=== PATIENT | male | born 1940 | race Caucasian/White ===

== ENCOUNTER 2017-05-05 12:47 | Observation (INO) | payer OTHER ==
--- NOTE | ~2017-05-05 | EKG ---
PATIENT: NIKO PATTERSON UNIT #: [id number] Ventricular Rate: 50 BPM Atrial Rate: 50 BPM P-R Interval: 182 ms QRS Duration: 102 ms Q-T Interval: 482 ms QTC Calculation(Bezet): 439 ms P [place]: -7 degrees Calculated R [place]: 35 degrees Calculated T [place]: 61 degrees Diagnosis Line: Marked sinus bradycardia Diagnosis Line: Otherwise normal ECG Diagnosis Line: When compared with ECG of 06-MAY-2017 08:25, Diagnosis Line: (unconfirmed) Diagnosis Line: No significant change was found Diagnosis Line: Confirmed by GONZALEZ KISER MD ([id number]) on Diagnosis Line: 05/07/2017 4:00:03 PM INTERPRETING MD: NOE
--- NOTE | ~2017-05-05 | CR72 ---
[facility] A Service of [facility] RADIOLOGY TEXT RESULTS PATIENT: NIKO PATTERSON LOCATION: [place] [address] : 42 UNIT #: [id number] AGE: [address]: Da Hatfield MD SEX: M ORDER DR: [id number] [facility] [address] [facility]. [place], [place] [address] [id number] MR#: [id number] Acc #: [id number] NAME: NIKO PATTERSON. : 1940 SEX: M STUDY DATE/TIME: 05/05/2017 13:45 UNIT: [facility] ROOM: STUDY DESCRIPTION: CR Chest Single View Portable Attending Physician: Faizan Marcial M.D. Ordering Physician: Faizan Marcial M.D. Primary Care Physician: Cora Jasso M.D. MEDICAL IMAGING REPORT This report is preliminary unless electronic signature is present EXAM Portable chest HISTORY Chest pain today. COMPARISON 04/17/2015 FINDINGS Low volume inspiration with bibasilar atelectasis. Calcified pleural plaques bilaterally. Heart size normal. IMPRESSION No acute findings. Low volume inspiration with bibasilar atelectasis. Dictated by... Jose Luis Hilton M.D. THIS IS AN ELECTRONICALLY VERIFIED REPORT Jose Luis Hilton M.D. at 05/06/2017 7:03 AM DAQUAN/meek TD: 05/05/2017 14:59 JOB #: [id number] MEDICAL IMAGING REPORT Page 1 of 1 COPY
--- NOTE | ~2017-05-05 | CO ---
Unit #: [id number] #: [id number] Patient: NIKO BRADEN [id number] [facility]. [address] [place], [place] [address] [id number] I MR#: [id number] NAME: NIKO BRADEN. ROOM: 574 Age: 76 Sex: M Admission Date: 05/05/2017 : 1940 Attending Physician: Da Hatfield M.D. Primary Care Physician: Cora Jasso M.D. Requesting Physician: Da Hatfield M.D. Consultation Date: 05/06/2017 CONSULTATION REPORT REASON FOR CONSULTATION Medical management. HISTORY OF PRESENT ILLNESS Mr. Braden is a very pleasant 76-year-old gentleman, a patient of Dr. Cora Jasso, with the past medical history of coronary artery disease, diabetes, dyslipidemia and hypertension, who apparently started experiencing some substernal chest pain which is described as a pressure sensation for about 30 or 40 minutes while at work, accompanied with some lightheadedness and dizziness. Patient did not suffer with any syncopal episode. There were no alleviating or aggravating factors to his pain. Denies any fever, chills, cough, nausea, vomiting, diarrhea or headache so patient was admitted by cardiology service per Dr. Hatfield and apparently he underwent the cardiac cath with the stent placement per Dr. Hatfield. Our consult was obtained secondary to medical management. REVIEW OF SYSTEMS A 12-point review of systems on this patient is basically negative except as above. PAST MEDICAL HISTORY Past medical history is significant for a history of coronary artery disease, hypertension, dyslipidemia and diabetes. PAST SURGICAL HISTORY Past surgical history is significant for PCI with stent in the past, also multiple EGDs and C-scopes. MEDICATIONS Reviewed. ALLERGIES Penicillin. SOCIAL HISTORY No current history of tobacco, alcohol or illicit drug use. FAMILY HISTORY Significant for coronary artery disease. PHYSICAL EXAMINATION GENERAL: On the physical exam he is a 76-year-old gentleman not in acute distress. Unit #: [id number] #: [id number] Patient: NIKO BRADEN VITAL SIGNS: BP 130/59. Heart rate 61. Respirations 16. Temperature 97.5. HEENT: Head is atraumatic. Pupils equal, round and reactive to light and accommodation. Extraocular muscles intact. Oropharynx clear. NECK: Supple. No mass. No JVD. No bruits. CHEST: Clear to auscultation bilaterally. CARDIOVASCULAR EXAM: S1, S2. No murmurs. ABDOMEN: Soft, nontender, nondistended. EXTREMITIES: Lower extremities without any cyanosis, clubbing or edema. NEUROLOGIC: Patient grossly intact, without any focal deficits. DIAGNOSTIC STUDIES IMAGING: Chest x-ray on admission was unremarkable. LABORATORY: Chemistry today also unremarkable. Coagulation panel significant for PTT of 34.7. Initial cardiac enzymes were negative. Hematology significant for white count of 11,000 and hemoglobin and hematocrit 11.3 and 34.6. ASSESSMENT AND PLAN 1. Coronary artery disease, status post percutaneous coronary intervention with stent and now repeat cardiac cath with another stent per Dr. Hatfield: Continue medical management per Cardiology. Most likely will be discharged home tomorrow. Follow up on chemistry in the morning. 2. Hypertension, stable: Continue current meds. 3. Dyslipidemia: Continue statin. 4. Diabetes, on Levemir. 5. Questionable dementia, on Namenda. 6. Hypothyroidism: Continue Synthroid I would like to thank Dr. Hatfield for giving me the opportunity to get involved in this patient's care. We will follow along with you. Dictated by... Tung Loredo M.D. OC/marianne TD: 05/07/2017 22:06 JOB #: [id number] CONSULTATION REPORT Page 1 of 1 X Tung Loredo MD X CONSULTATION REPORT
--- NOTE | ~2017-05-05 | EKG ---
PATIENT: NIKO PATTERSON UNIT #: [id number] Ventricular Rate: 76 BPM Atrial Rate: 76 BPM P-R Interval: 162 ms QRS Duration: 90 ms Q-T Interval: 394 ms QTC Calculation(Bezet): 443 ms P [place]: -25 degrees Calculated R [place]: 23 degrees Calculated T [place]: 76 degrees Diagnosis Line: Normal sinus rhythm Diagnosis Line: Normal ECG Diagnosis Line: When compared with ECG of 05-MAY-2017 12:53, Diagnosis Line: (unconfirmed) Diagnosis Line: Sinus rhythm has replaced Electronic atrial Diagnosis Line: pacemaker Diagnosis Line: Confirmed by GONZALEZ KISER MD ([id number]) on Diagnosis Line: 05/07/2017 3:41:43 PM INTERPRETING MD: NOE
--- NOTE | ~2017-05-05 | HP ---
Unit #: [id number] #: [id number] Patient: NIKO BRADEN [id number] [address] [place], [place] [address] [id number] I MR#: [id number] NAME: NIKO BRADEN ROOM: 40615 Age: 76 Sex: M Admission Date: 05/05/2017 : 1940 Attending Physician: Da Hatfield M.D. Primary Care Physician: Cora Jasso M.D. HISTORY AND PHYSICAL REASON FOR ADMISSION Unstable angina pectoris. 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 In 2011, he was taken to [facility] [place] [facility] following a near syncopal episode and found to have significant stenosis in two coronary arteries, the details of which are not available. One of the arteries had a 90% stenosis and underwent insertion of a drug-eluting stent while a smaller artery with 85% stenosis was not intervened with. 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 This morning about 10 a.m. he was sitting at his desk at the office when he had sudden onset of pressure-like sensation in the mid anterior chest associated with burning sensation in the left parasternal area with radiation of the pain to the left shoulder and the left upper arm accompanied by dizziness and lightheadedness without any diaphoresis, palpitations, syncope, or near syncope. He did not take any sublingual nitroglycerin and the pain subsided in about 30-40 minutes but he decided to come to the emergency room. While in the emergency room, he had recurrence of this pain and was advised admission. Over the last five years, he had not had any angina pectoris at rest or on exertion. He has denied any orthopnea, nocturnal dyspnea, syncope, near syncope, diplopia, blurred vision, amaurosis fugax, transient ischemic attacks. PAST MEDICAL HISTORY A year ago he was thought to have had a small TIA related to small vessel disease. Again, the details are not available. The patient is known to have hypertension, diabetes mellitus, and hyperlipidemia. SOCIAL AND PERSONAL HISTORY He is a lifetime nonsmoker and used to drink small amounts of alcohol in his earlier days but stopped 10 years ago. FAMILY HISTORY His father underwent five-vessel bypass graft surgery in his early 70s and was a patient of mine. PAST SURGICAL HISTORY Unremarkable. Unit #: [id number] #: [id number] Patient: NIKO BRADEN. PHYSICAL EXAMINATION GENERAL: Reveals a middle-aged white male mildly obese in no acute distress. There is no jugular venous distention. Carotid upstrokes are normal without any bruits. Posterior tibialis pulses are bilaterally absent. Dorsalis pedis pulses are normal. CARDIAC: Shows apical impulse is palpable in the fifth intercostal space and midclavicular line and is normal, both heart sounds are normal. No rubs or clicks are audible. There is no murmur. CHEST: Shows normal to palpation, percussion, and auscultation. There is good air entry bilaterally without rales or rhonchi. ABDOMEN: Shows mild obesity. There is no hepatosplenomegaly, free fluid, or masses. RECTAL: Not done. CENTRAL NERVOUS SYSTEM: Within normal limits. DIAGNOSTIC STUDIES LABORATORY: Cardiac enzymes have been normal so far. CARDIOVASCULAR: Electrocardiogram at the time of admission shows normal sinus rhythm, old inferior wall TX, and T-wave abnormalities suggestive of bilateral wall subepicardial ischemia. DIAGNOSES 1. Unstable angina pectoris. 2. Status post percutaneous coronary intervention with stent insertion in 2011, details not known. 3. Insulin-dependent diabetes mellitus. 4. Hypertension. 5. Hyperlipidemia. 6. History of transient ischemic attack. PLAN 1. Repeat cardiac enzymes and electrocardiograms would be performed. 2. Lipid profile will be done in the morning. 3. Patient is being started on beta blockers and Ranexa in addition to long-acting nitrates, aspirin, and Plavix that he has been on. 4. He is advised to consider cardiac catheterization because of history of coronary artery disease and new onset of abdominal pain to which he agrees. Procedure and risks were discussed with the patient and his . Dr. Bejarano will be requested to see the patient in consultation and manage her diabetes mellitus and other medical problems. Dictated by Mya Sarkar TD: 05/05/2017 17:23 JOB #: [id number] Unit #: [id number] #: [id number] Patient: NIKO BRADEN CC: Cora Jasso M.D. HISTORY AND PHYSICAL Page 1 of 1 X Da Hatfield MD X HISTORY AND PHYSICAL
--- NOTE | ~2017-05-05 | EKG ---
PATIENT: NIKO PATTERSON UNIT #: [id number] Ventricular Rate: 54 BPM Atrial Rate: 54 BPM P-R Interval: 182 ms QRS Duration: 104 ms Q-T Interval: 472 ms QTC Calculation(Bezet): 447 ms P [place]: -16 degrees Calculated R [place]: 50 degrees Calculated T [place]: 68 degrees Diagnosis Line: Sinus bradycardia Diagnosis Line: Otherwise normal ECG Diagnosis Line: When compared with ECG of 05-MAY-2017 12:54, Diagnosis Line: (unconfirmed) Diagnosis Line: No significant change was found Diagnosis Line: Confirmed by GONZALEZ KISER MD ([id number]) on Diagnosis Line: 05/07/2017 3:57:36 PM INTERPRETING MD: NOE
--- NOTE | ~2017-05-05 | EKG ---
PATIENT: NIKO PATTERSON UNIT #: [id number] Ventricular Rate: 59 BPM Atrial Rate: 59 BPM P-R Interval: 184 ms QRS Duration: 104 ms Q-T Interval: 450 ms QTC Calculation(Bezet): 445 ms P [place]: -26 degrees Calculated R [place]: 69 degrees Calculated T [place]: 31 degrees Diagnosis Line: Sinus bradycardia with sinus arrhythmia Diagnosis Line: Otherwise normal ECG Diagnosis Line: When compared with ECG of 06-MAY-2017 10:51, Diagnosis Line: (unconfirmed) Diagnosis Line: No significant change was found Diagnosis Line: Confirmed by GONZALEZ KISER MD ([id number]) on Diagnosis Line: 05/07/2017 4:13:01 PM INTERPRETING MD: NOE
--- NOTE | ~2017-05-05 | DS ---
Unit #: [id number] #: [id number] Patient: NIKO PATTERSON [id number] [address] [address] [id number] MR#: [id number] NAME: NIKO PATTERSON. ROOM: 574 Age: 76 Sex: M Admission Date: 05/05/2017 : 1940 Discharge Date: 05/07/2017 Attending Physician: Da Hatfield M.D. Primary Care Physician: Cora Jasso M.D. DISCHARGE SUMMARY DISCHARGE DIAGNOSES 1. Unstable angina. 2. Status post cardiac catheterization 05/06/2017 at [facility] that reveals the following results: a) Left main short, calcified but no stenosis. b) Left anterior descending with mild to moderate calcifications throughout the course. Proximal left anterior descending 40% to 50% stenosis before the origin in the first diagonal branch. 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 c) Circumflex artery with 90% stenosis in the first obtuse marginal branch. Mid circumflex artery with 30% stenosis. PDA of circumflex artery shows presence of stent that is widely patent. Posterior marginal branch is normal. The previously placed stent in the distal circumflex artery is widely patent. d) Right coronary artery is small caliber, nondominant vessel with 50% to 60% stenosis in the mid segment. e) Ejection fraction of 55%. 3. Status post percutaneous coronary intervention with Synergy drug-eluting stent to the proximal first marginal branch. 4. 2D echocardiogram 05/06/2017 shows ejection fraction of 45% to 50% with mildly dilated left atrium and right ventricle. Mild mitral regurgitation, mild tricuspid regurgitation, mild to moderate valvular regurgitation. Right ventricular systolic pressure 32 mmHg. 5. Previous percutaneous coronary intervention and stent to the PDA of the circumflex artery and distal circumflex artery in 2011. 6. Hypertension. 7. Hyperlipidemia. 8. Diabetes mellitus type 2. 9. Chronic iron deficiency anemia. 10. Dementia. DISCHARGE MEDICATIONS 1. Pulmicort, one vial daily p.r.n. 2. Olmesartan 20 mg q. h.s. 3. Atorvastatin 80 mg q. h.s. 4. Zetia 10 mg daily. 5. Lopressor 12.5 mg b.i.d. 6. Namenda 5 mg b.i.d. 7. Janumet 100/1000 mg q. h.s. 8. Levemir 12 units subcu b.i.d. 9. Centrum Silver, one tablet daily. 10. PreserVision multivitamin, one tablet b.i.d. 11. Aspirin 81 mg daily. Unit #: [id number] #: [id number] Patient: NIKO PATTERSON 12. Plavix 75 mg daily. 13. Glipizide 10 mg daily. 14. Levothyroxine 150 mcg daily. 15. Isosorbide mononitrate 60 mg daily. 16. Nitroglycerin 0.4 mg sublingual q.5 minutes x3 p.r.n. chest pain. 17. Vitamin B12 6000 mcg daily. HOSPITAL COURSE This is a 76-year-old white male who had previously placed stents to his PDA of the circumflex artery and the distal circumflex artery following a syncopal episode. He developed rest angina with burning sensation that radiated into his left shoulder and arm associated with dizziness and lightheadedness. For this reason, he came to the emergency room for evaluation. He was ruled out for an acute myocardial infarction where troponin was negative. He was started on beta blockers, long acting nitrates, aspirin, Plavix and Ranexa. He was advised to undergo cardiac catheterization to re-evaluate his coronary anatomy. Risks and benefits were explained and the patient was agreeable. The following day, the patient went to the cardiac catheterization lab where he was found to have a 90% stenosis in the proximal third of the first marginal branch which was most likely the culprit lesion. There was a 70% to 75% stenosis in the mid LAD that was not dilated. There was successful deployment of a 3.5 x 20 mm long Synergy drug-eluting stent into the proximal third of the first marginal branch post dilated up to 3.51 mm. The 90% stenosis was reduced to no residual. There was NICOLE III flow in the distal vessel. Aggressive risk factor management controlled with diabetes and lipid levels will be done. Cardiac rehab was asked to see the patient post procedure. He was continued on dual antiplatelet therapy with aspirin and Plavix. He had no electrocardiogram changes post procedure. Echocardiogram was done which found him to have left ventricular systolic function but no significant valvular heart disease. Dr. Byers saw the patient for diabetes management. Today, the patient is doing well. He is ambulating in his room and tolerating his exercise. He had no recurrent chest pain. There were no arrhythmias. He will need dual antiplatelet therapy for one year. It was discussed with the patient not to discontinue his antiplatelet therapy to prevent stent thrombosis, CVA, [place] or . He is stable for discharge today. ASSESSMENT VITAL SIGNS: Blood pressure 109/52, heart rate 55, temperature 97.4. CHEST: Clear to auscultation. HEART: S1, S with regular rate and rhythm. ABDOMEN: Soft, nontender with bowel sounds present. EXTREMITIES: Without leg edema. Right radial without hematoma or bruising. DIAGNOSTIC STUDIES LABORATORY: Hemoglobin 10.6, hematocrit 31.3, platelet count 232, white count 10.4, sodium 136, potassium 4.3, BUN 19, creatinine 1.3, glucose 105. MB index 9.8, CK total 63, cholesterol 84, triglycerides 242, LDL 11, HDL 25. CARDIOVASCULAR: Electrocardiogram - sinus bradycardia, rate of 50 beats/minute. DISCHARGE INSTRUCTIONS Unit #: [id number] #: [id number] Patient: NIKO PATTERSON 1. The patient will be discharged home today. 2. Follow up with his primary care physician in two weeks. 3. Follow up with Dr. Hatfield on , June 24, at 2:45 p.m. 4. No driving for 24 hours. No heavy lifting for 48 hours. 5. Cardiac Rehab has been consulted to see the patient prior to discharge. 6. All information has been explained to the given the patient's dementia. 7. Dual antiplatelet therapy for one year. 8. Continue risk factor modification to control her blood pressure and lipid levels. Dictated by... Kim LopezRBonifacio for Mya Hoover/sherman TD: 05/10/2017 10:38 JOB #: [id number] DISCHARGE SUMMARY Page 1 of 1 X Anirudh Booth APRN DISCHARGE SUMMARY
[~2017-05-05 12:47] MED LIST: ACTOS30 MG PO; ADVAIR 5001 DISK W/D INH; ALBUTEROL17 GM INH; ARICEPT PO; ASPIRIN81 M1 PO; ATROVENT NASAL15 ML; BENICAR PO; BENZONATATE PO; CENTRUM PO; CYMBALTA30 MG PO; DDAVP0.2 M1 PO; DETROL PO; FENOFIBRATE160 MG PO; FISH OIL 1,0001 CA2 PO; GLIPIZIDE5 MG/BOTTL PO; HYTRIN2 MG PO; IMDUR-ER60 MG PO; LEVOXYL175 MCG PO; METFORMIN HCL500 M1 PO; NAMENDA5 MG PO; NEXIUM40 MG/PACK PO; OCUTABS TABLET1 TAB PO; PLAVIX PO; SINGULAIR PO; UROXATRAL10 MG PO; VYTORIN 10-40 M1 TAB PO; ZYRTEC D PO
[2017-05-05] MEDS ORDERED: ZETIA PO (13:21)
[2017-05-05] MEDS ORDERED: BUDESONIDE0.5 MG/2 M NEB (13:21)
[2017-05-05] MEDS ORDERED: GLIPIZIDE10 MG PO (13:22)
[2017-05-05] MEDS ORDERED: ISOSORBIDE MONO60 M1 PO (13:22)
[2017-05-05] MEDS ORDERED: SYNTHROID PO (13:22)
[2017-05-05] MEDS ORDERED: CLOPIDOGREL75 MG PO (13:22)
[2017-05-05] MEDS ORDERED: NAMENDA5 MG PO (13:23)
[2017-05-05] MEDS ORDERED: VITAMIN B122500 MC1 PO (13:23)
[2017-05-05] MEDS ORDERED: FISH OIL300 MG PO (13:24)
[2017-05-05] MEDS ORDERED: PRESERVISION1 EA PO (13:24)
[2017-05-05] MEDS ORDERED: OLMESARTAN MEDO20 MG PO (13:25)
[2017-05-05] MEDS ORDERED: JANUMET XR 1001 EACH PO (13:26)
[2017-05-05] MEDS ORDERED: LIPITOR PO (13:26)
[2017-05-05] MEDS ORDERED: CENTRUM PO (13:27)
[2017-05-05] MEDS ORDERED: ASPIRIN81 M2 PO (13:27)
[2017-05-05] MEDS ORDERED: LEVEMIR FL100 UNIT/1 SUBQ (13:29)
[2017-05-05] MEDS ORDERED: PATIENT'S PHARMACY (13:30)
[2017-05-05 13:58] LABS: POC - CKMB <1.0 ng/mL (0.0-7.9); POC - TROPONIN <0.05 ng/mL (<=0.05)
[2017-05-05 13:58] LABS: BASOPHIL# 0.1 X10e3 (0-0.3); BASOPHIL% 0.6 % (0-2.5); DIFF IND NO; EOSINOPHIL# 0.2 X10e3 (0-0.7); EOSINOPHIL% 1.6 % (0.0-7.0); HEMATOCRIT 33.4 % (38.0-50.0); HEMOGLOBIN 11.1 gm/dL (13.0-16.0); LYMPHOCYTE# 3.2 X10e3 (1.0-3.5); LYMPHOCYTE% 28.7 % (17.0-45.0); MEAN CELL VOLUME 91.8 FL (83-96); MEAN CORPUSCULAR HEMOGLOBIN 30.6 PG (28-34); MEAN CORPUSCULAR HGB CONC 33.3 g/dL (30-36); MEAN PLATELET VOLUME 7.7 FL (6.5-11.5); MONOCYTE# 1.4 X10e3 (0-1.0); MONOCYTE% 12.3 % (3.0-12.0); NEUTROPHIL# 6.3 X10e3 (1.5-7.1); NEUTROPHIL% 56.8 % (40-75); PLATELET COUNT 255 X10e3 (140-420); RED BLOOD COUNT 3.64 X10e (3.90-5.60); RED CELL DISTRIBUTION WIDTH 13.9 % (11.0-15.5)
[2017-05-05 14:09] LABS: PARTIAL THROMBOPLASTIN TIME 26.2 SECONDS (23.5-31.3); PROTHROMBIN TIME (PATIENT) 10.7 SECONDS (10.0-11.7)
[2017-05-05 14:20] LABS: ALBUMIN SERUM 3.6 g/dL (3.5-5.0); ALKALINE PHOSPHATASE 97 U/L (32-92); ALT (SGPT) 19 U/L (10-40); AST (SGOT) 21 U/L (10-42); BILIRUBIN,TOTAL 0.5 mg/dL (0.2-2.0); BLOOD UREA NITROGEN 19 mg/dL (9-23); BUN/CREATININE RATIO 14.61; CARBON DIOXIDE 27 mmol/L (22-31); CHLORIDE 101 mmol/L (100-111); CREATININE SERUM 1.3 mg/dL (0.6-1.4); GLOM FILT RATE Estimated 53.8 mL/min (>60); GLUCOSE FASTING 202 mg/dL (70-110); POTASSIUM 4.7 mmol/L (3.5-5.1); SODIUM 134 mmol/L (135-145)
[2017-05-05 14:23] LABS: BILIRUBIN, DIRECT <0.1 mg/dL (0.0-0.2); BILIRUBIN,INDIRECT 0.4 mg/dL (0.0-0.9)
[2017-05-05 15:34] LABS: POC - CKMB <1.0 ng/mL (0.0-7.9); POC - TROPONIN <0.05 ng/mL (<=0.05)
[2017-05-06 05:54] LABS: BASOPHIL# 0.1 X10e3 (0-0.3); BASOPHIL% 0.6 % (0-2.5); EOSINOPHIL# 0.3 X10e3 (0-0.7); EOSINOPHIL% 2.8 % (0.0-7.0); HEMATOCRIT 34.6 % (38.0-50.0); HEMOGLOBIN 11.3 gm/dL (13.0-16.0); LYMPHOCYTE# 3.1 X10e3 (1.0-3.5); LYMPHOCYTE% 28.1 % (17.0-45.0); MEAN CELL VOLUME 92.3 FL (83-96); MEAN CORPUSCULAR HEMOGLOBIN 30.2 PG (28-34); MEAN CORPUSCULAR HGB CONC 32.7 g/dL (30-36); MEAN PLATELET VOLUME 7.9 FL (6.5-11.5); MONOCYTE# 1.4 X10e3 (0-1.0); MONOCYTE% 12.4 % (3.0-12.0); NEUTROPHIL# 6.2 X10e3 (1.5-7.1); NEUTROPHIL% 56.1 % (40-75); PLATELET COUNT 239 X10e3 (140-420); RED BLOOD COUNT 3.75 X10e (3.90-5.60); RED CELL DISTRIBUTION WIDTH 13.8 % (11.0-15.5)
[2017-05-06 05:57] LABS: DIFF IND NO
[2017-05-06 06:07] LABS: INR 1.1; PARTIAL THROMBOPLASTIN TIME 34.7 SECONDS (23.5-31.3); PROTHROMBIN TIME (PATIENT) 11.7 SECONDS (10.0-11.7)
[2017-05-06 06:49] LABS: BUN/CREATININE RATIO 16.36; CALCIUM SERUM 9.4 mg/dL (8.4-10.2); CREATININE SERUM 1.1 mg/dL (0.6-1.4); GLOM FILT RATE Estimated 65.8 mL/min (>60); POTASSIUM 4.3 mmol/L (3.5-5.1)
[2017-05-06 19:17] LABS: ANGIO %MB 7.2 % (0.0-4.0); ANGIO MB 3.1 ng/ml
[2017-05-07 02:31] LABS: HEMATOCRIT 31.3 % (38.0-50.0); HEMOGLOBIN 10.6 gm/dL (13.0-16.0); MEAN CELL VOLUME 90.6 FL (83-96); MEAN CORPUSCULAR HEMOGLOBIN 30.6 PG (28-34); MEAN CORPUSCULAR HGB CONC 33.8 g/dL (30-36); MEAN PLATELET VOLUME 7.1 FL (6.5-11.5); RED BLOOD COUNT 3.46 X10e (3.90-5.60); RED CELL DISTRIBUTION WIDTH 13.9 % (11.0-15.5); WHITE BLOOD COUNT 10.4 X10e3 (4.0-10.5)
[2017-05-07 02:58] LABS: BUN/CREATININE RATIO 14.61; CALCIUM SERUM 8.9 mg/dL (8.4-10.2); CREATININE SERUM 1.3 mg/dL (0.6-1.4); GLOM FILT RATE Estimated 53.8 mL/min (>60); POTASSIUM 4.3 mmol/L (3.5-5.1)
[2017-05-07 03:24] LABS: ANGIO %MB 9.8 % (0.0-4.0); ANGIO MB 6.2 ng/ml
[2017-05-07] MEDS ORDERED: LOPRESSOR PO (11:49)
[2017-05-07] MEDS ORDERED: NITROGLYGERIN0.4 MG SL (11:51)
== END 2017-05-07 12:37 | disposition home or self-care (01) ==
LOC: CED 12:47 → CEDOF 16:46 → C5C 20:06
PROVIDERS: Emergency Medicine; Internal Medicine Cardiovascular Disease
DX: I25.110 Atherosclerotic heart disease of native coronary artery with unstable angina pectoris (principal); I08.8 Other rheumatic multiple valve diseases; I10 Essential (primary) hypertension; Z95.5 Presence of coronary angioplasty implant and graft; I25.2 Old myocardial infarction; E78.5 Hyperlipidemia, unspecified; E11.9 Type 2 diabetes mellitus without complications; Z79.4 Long term (current) use of insulin; D50.9 Iron deficiency anemia, unspecified; F03.90 Unspecified dementia, unspecified severity, without behavioral disturbance, psychotic disturbance, mood disturbance, and anxiety; Z86.73 Personal history of transient ischemic attack (TIA), and cerebral infarction without residual deficits; Z82.49 Family history of ischemic heart disease and other diseases of the circulatory system; Z79.02 Long term (current) use of antithrombotics/antiplatelets; Z79.82 Long term (current) use of aspirin
CPT/HCPCS: 93458; C9600; 36415; 71010; 80048; 80061; 80076; 82550; 82553; 82947; 84484; 85025; 85027; 85347; 85610; 85730; 93005; 93306; 94760; 96372; 99285; C1725; C1769; C1874; C1887; C1894; G0378; J1644; J1650; J2250; J3010

== ENCOUNTER 2017-07-14 08:56 | Observation (INO) | payer OTHER ==
[~2017-07-14] VITALS: Ht 175.3 cm; Wt 85.7 kg
--- NOTE | ~2017-07-14 | EKG ---
PATIENT: NIKO PATTERSON UNIT #: [id number] Ventricular Rate: 63 BPM Atrial Rate: 63 BPM P-R Interval: 178 ms QRS Duration: 94 ms Q-T Interval: 442 ms QTC Calculation(Bezet): 452 ms P [place]: 101 degrees Calculated R [place]: 30 degrees Calculated T [place]: 44 degrees Diagnosis Line: Normal sinus rhythm Diagnosis Line: Normal ECG Diagnosis Line: When compared with ECG of 14-JUL-2017 17:52, Diagnosis Line: (unconfirmed) Diagnosis Line: No significant change was found Diagnosis Line: Confirmed by NIR TALAVERA MD ([id number]) on 07/16/2017 Diagnosis Line: 4:58:23 PM INTERPRETING MD: SADAF PASCUAL
--- NOTE | ~2017-07-14 | EKG ---
PATIENT: NIKO PATTERSON UNIT #: [id number] Ventricular Rate: 55 BPM Atrial Rate: 55 BPM P-R Interval: 178 ms QRS Duration: 106 ms Q-T Interval: 480 ms QTC Calculation(Bezet): 459 ms P [place]: -16 degrees Calculated R [place]: 25 degrees Calculated T [place]: 39 degrees Diagnosis Line: Sinus bradycardia Diagnosis Line: Otherwise normal ECG Diagnosis Line: Diagnosis Line: Confirmed by NIR TALAVERA MD ([id number]) on 07/16/2017 Diagnosis Line: 4:50:36 PM INTERPRETING MD: SADAF PASCUAL
--- NOTE | ~2017-07-14 | HP ---
Unit #: [id number] #: [id number] Patient: NIKO ESQUIVEL J [id number] [facility]. [place], [place] [address] [id number] I MR#: [id number] NAME: NIKO ESQUIVEL ROOM: 34491 Age: 76 Sex: M Admission Date: 07/14/2017 : 1940 Attending Physician: Da Hatfield M.D. Primary Care Physician: Cora Jasso M.D. HISTORY AND PHYSICAL HISTORY OF PRESENT ILLNESS This is a 76-year-old white male known to Dr. Hatfield with a past medical history of recent admission to [facility] May 05 through May 07, 2017 for unstable angina. The patient underwent a cardiac catheterization on 05/06/2017 which revealed a 90% stenosis in the first obtuse marginal. Near the origin of the second septal air pumper there was a 70% to 75% stenosis. The proximal LAD had a 40% to 50% stenosis. There were patent stents in the PDA and distal left circumflex. The mid right coronary artery was small but had a 50% to 60% stenosis. The patient underwent PCI and drug-eluting stent placement in the first obtuse marginal of the left circumflex. His ejection fraction was 55% on LV-gram. Additional past medical history includes hypertension, hyperlipidemia, diabetes mellitus type 2, anemia, mild dementia, hypothyroidism and previous TIA. The patient is a lifetime nonsmoker. He has been compliant with his medications. He presented to the emergency department today with complaints of chest pain while on the treadmill at cardiac rehab. The pain was located in the left anterior chest. It was described as pressure and burning. It felt similar to pain that he had in the past prior to stent placement. There was shortness of breath but no nausea, vomiting or diaphoresis. He has had some dizziness with standing but no syncope. He denies palpitations. He states that he has had multiple episodes of chest pain since his stent was placed in April 2017, but he did not mention it because the pain was mild. Today the pain was worse in intensity, and he decided that he needed to be seen. He took 2 sublingual nitroglycerin, and the pain improved but did not resolve. He was brought to the emergency department. EKG revealed Q waves in the inferior leads but no acute findings. He was noted to have sinus arrhythmia. Initial troponin is negative at 0.05. Chemistry is pending. CBC reveals a hemoglobin of 11.4 with a platelet count of 236. PAST MEDICAL HISTORY 1. Recent admission to [facility] May 05 through May 07, 2017 for unstable angina. Status post cardiac catheterization May 06, [address] Hatfield, which revealed left main short but normal. Proximal LAD 40% to 50%. Near origin of second septal air pumper 70% to 75%. First obtuse marginal 90%. Mid left circumflex 30%. PDA with patent stent. Distal left circumflex with patent stent. RCA small. Mid right coronary artery 50% to 60%. Ejection fraction 55%. Status post PCI and drug-eluting stent in the first obtuse marginal of the left circumflex. Unit #: [id number] #: [id number] Patient: NIKO ESQUIVEL 2. Previous PCI and stent in the PDA and left circumflex in 2011. 3. Two-D echocardiogram May 06, 2017 revealed an ejection fraction of 45% to 50%. Mildly dilated left atrium and right ventricle. Mild mitral regurgitation. Mild tricuspid regurgitation. Right ventricular systolic pressure 32 mmHg. 4. Hypertension. 5. Hyperlipidemia. 6. Diabetes mellitus type 2. 7. Chronic iron deficiency anemia. 8. Mild dementia. 9. Hypothyroidism. 10. History of TIA in 2014. 11. Depression. 12. History of asbestos exposure. 13. Nonsmoker. PAST SURGICAL HISTORY 1. Cardiac catheterization as noted above. 2. Bronchoscopy in 2009, which was normal. 3. EGD, September 2012, revealed small hiatal hernia and mild gastritis. Colonoscopy with internal hemorrhoids and several small polyps. 4. Cataract extraction. 5. Appendectomy. 6. Nasal surgery. 7. Retina surgery. HOME MEDICATIONS 1. Zetia 10 mg p.o. daily. 2. Levothyroxine 0.15 mg p.o. daily. 3. Plavix 75 mg p.o. daily. 4. Isosorbide mononitrate 60 mg p.o. daily. 5. Glipizide 10 mg p.o. daily. 6. Memantine 5 mg p.o. b.i.d. 7. Metoprolol tartrate 12.5 mg p.o. b.i.d. 8. Vitamin D3 - 5,000 international units daily. 9. Vitamin B12 - 6,000 mcg p.o. daily. 10. PreserVision eyedrops. 11. Levemir 12 units subcu injection b.i.d. 12. Aspirin 81 mg p.o. daily. 13. Atorvastatin 80 mg p.o. q.h.s. 14. Janumet XR 100/1,000 mg p.o. at bedtime. 15. Benicar 20 mg p.o. at bedtime. 16. Centrum multivitamin 1 tablet p.o. at bedtime. ALLERGIES Penicillin. SOCIAL HISTORY The patient lives in a private residence with his . He is a lifetime nonsmoker. There are no reports of alcohol use. He denies illicit drug use. FAMILY HISTORY Significant for heart disease. His father underwent coronary artery bypass grafting in his early 70s. REVIEW OF SYSTEMS A 10-point review of systems is negative except for details noted above in HPI. Unit #: [id number] #: [id number] Patient: NIKO ESQUIVEL PHYSICAL EXAMINATION VITAL SIGNS: Temperature 97.3, pulse 61, blood pressure 140/76. CONSTITUTIONAL: This is a 76-year-old white male in no acute distress. SKIN: Warm and dry. NECK: Supple. No jugular vein distention. No hepatojugular reflux. Normal carotid upstrokes. No carotid bruits auscultated. HEART: S1, S2. Regular rate and rhythm. No murmurs, rubs or gallops. LUNGS: Bilateral breath sounds have good air entry throughout all lung mata. Respirations are even and nonlabored. No rales, rhonchi or wheezes. ABDOMEN: Soft, nontender, nondistended. Positive bowel sounds auscultated x4 quadrants. No ascites noted. EXTREMITIES: Bilateral lower extremities have no pretibial pitting edema. DP and PT pulses are 2+. Capillary refill less than 3 seconds. DIAGNOSTIC STUDIES LABORATORY: White blood cell count 8.2, hemoglobin 11.4, hematocrit 34, platelets 236. Chemistry pending. [id number] troponin 0.05. IMAGING: Chest x-ray pending. CARDIOVASCULAR: Electrocardiogram reveals sinus rhythm with arrhythmia with a ventricular rate of 61 beats per minute. Q waves in the inferior leads. Nonspecific ST-T wave changes. QTc 457 msec. IMPRESSION 1. Recurrent exertional angina. 2. Coronary artery disease with history of percutaneous coronary intervention and stent in the posterior descending artery and distal left circumflex in 2011 and first obtuse marginal April 2017. Residual stenosis in the mid LAD of 75%. 3. Left ventricular ejection fraction 55% per left ventriculogram April 2017. 4. Hypertension. 5. Hyperlipidemia. 6. Diabetes mellitus type 2. 7. Chronic iron deficiency anemia. 8. Mild dementia. 9. History of transient ischemic attack. PLAN 1. The patient presented to the hospital with complaints of chest pain. He has been recommended for admission and further evaluation. 2. The patient has been advised to undergo a cardiac catheterization. The risks and benefits have been discussed, and he is agreeable. He will be scheduled for later this afternoon. 3. Cardiac enzymes and EKG will be trended. 4. Fasting lipid profile and TSH level will be obtained. 5. The patient is on a nitroglycerin drip, which will be continued for the time being. He will be restarted on dual antiplatelet therapy, high dose statin, beta-leann and ARB. 6. He will be placed on a low-dose sliding scale protocol and Accu-Cheks a.c. and h.s. His metformin will be placed on hold due to cardiac catheterization. Unit #: [id number] #: [id number] Patient: NIKO ESQUIVEL Dictated by Allyson Mazariegos APRN for Mya Sarkar/gabino TD: 07/14/2017 10:55 JOB #: [id number] HISTORY AND PHYSICAL Page 1 of 1 X X HISTORY AND PHYSICAL
--- NOTE | ~2017-07-14 | CR72 ---
[facility] A Service of [facility] RADIOLOGY TEXT RESULTS PATIENT: NIKO PATTERSON LOCATION: [facility] : 42 UNIT #: [id number] AGE: [address]: Da Hatfield MD SEX: M ORDER DR: [id number] [facility] [address] [facility]. [place], [place] [address] [id number] I MR#: [id number] Acc #: [id number] NAME: NIKO PATTERSON. : 1940 SEX: M STUDY DATE/TIME: 07/14/2017 10:00 UNIT: [facility] ROOM: STUDY DESCRIPTION: CR Chest Single View Portable Attending Physician: Da Hatfield M.D. Ordering Physician: Divina Musa M.D. Primary Care Physician: Cora Jasso M.D. MEDICAL IMAGING REPORT This report is preliminary unless electronic signature is present EXAM Chest portable 07/14/2017 10:00 HISTORY 76-year-old man complaining of anterior chest pain and shortness of air with onset today. History of hypertension, heart disease and prior TIA. COMPARISON 05/05/2017. FINDINGS Single portable upright view of the chest demonstrates heart size at the upper limits of normal. Mediastinal and aortic contours are normal. The lungs are well expanded. There are calcified densities in the lateral aspect of both midlung regions and at the right hemidiaphragm most consistent with calcified pleural plaques indicating prior asbestos exposure. IMPRESSION 1. Heart size is stable at the upper limits of normal. 2. There are bilateral calcified pleural plaques unchanged. This is indicative of prior asbestos exposure. 3. No acute pulmonary density or pleural effusion. Dictated by... Clara Moer M.D. THIS IS AN ELECTRONICALLY VERIFIED REPORT Clara More M.D. at 07/14/2017 2:31 PM LARA/maude TD: 07/14/2017 12:33 [facility] A Service of [facility] RADIOLOGY TEXT RESULTS PATIENT: NIKO PATTERSON LOCATION: [facility] [id number] : 42 UNIT #: [id number] AGE: [address]: Da Hatfield MD SEX: M ORDER DR: JOB #: [id number] MEDICAL IMAGING REPORT Page 1 of 1 COPY
--- NOTE | ~2017-07-14 | DS ---
Unit #: [id number] #: [id number] Patient: NIKO PATTERSON [id number] [address] [address] [id number] I MR#: [id number] NAME: NIKO PATTERSON ROOM: 552 Age: 76 Sex: M Admission Date: 07/14/2017 : 1940 Discharge Date: 07/15/2017 Attending Physician: Da Hatfield M.D. Primary Care Physician: Cora Jasso M.D. DISCHARGE SUMMARY DISCHARGE DIAGNOSES 1. Acute coronary syndrome with peak troponin of 0.48. 2. Status post cardiac catheterization 07/14/[address] Hatfield at [facility] that reveals the following results. a) Left main normal. LV gram not done. Left ventricular end diastolic pressure at 12 mmHg. b) Left anterior descending artery with proximal stent patient. 70-75% stenosis distal to the stent. Mid LAD with diffuse disease of 75% concentric stenosis. First diagonal branch 60% at its ostium. c) Circumflex artery with first obtuse marginal branch stent patent. Distal circumflex artery stent patent. d) Right coronary artery revealed a long segment stenosis of 50 and 70%. 3. Status post PCI with drug-eluting stents x2 to the mid LAD and proximal LAD. Fractional flow reserve measurement of the mid LAD stenosis 70%. 4. Recent PCI with drug-eluting stent to the proximal first marginal branch 05/06/2017. 5. Hypertension. 6. Hyperlipidemia. 7. Diabetes mellitus type 2. 8. Chronic iron deficiency anemia. 9. Dementia. 10. PCI with drug-eluting stent to the PDA of the circumflex artery and distal circumflex artery in 2011. DISCHARGE MEDICATIONS 1. Benicar 20 mg q. h.s. 2. Zetia 10 mg daily. 3. Metoprolol tartrate 12.5 mg b.i.d. 4. Namenda 5 mg b.i.d. 5. Janumet 100/1000 mg q. h.s., to restart 07/16/2017. 6. Lipitor 80 mg q. h.s. 7. Levemir 12 units subcu b.i.d. 8. Multivitamin, one tablet daily. 9. Aspirin 81 mg daily. 10. PreserVision softgel, one tablet b.i.d. 11. Plavix 75 mg daily. 12. Glipizide 10 mg daily, a.c. breakfast. 13. Isosorbide mononitrate 60 mg daily. 14. Vitamin B12 6000 mcg daily. 15. Vitamin D3 5000 units daily. 16. Nitroglycerin 0.4 mg sublingual q.5 minutes x3 p.r.n. chest pain. Unit #: [id number] #: [id number] [facility] This was a 76-year-old white male who was recently discharged from this facility on 05/07/2017 for unstable angina. Cardiac catheterization at that time revealed a 90% stenosis in the first obtuse marginal branch of the circumflex artery that underwent PCI with drug-eluting stent. After discharge, the patient went to cardiac rehab. While exercising on the treadmill, he began to have left anterior chest pain with pressure and burning. His symptoms were similar to chest pain that he experienced prior to stent placement. He was sent to the emergency room for evaluation where his troponin was initially negative. He was started on nitroglycerin drip, continued on a dual antiplatelet therapy with aspirin and Plavix. His high intensity statin and ARB was continued. The patient was advised to undergo cardiac catheterization for which he agreed. Repeat cardiac catheterization showed 70-75% stenosis distal to the proximal LAD stent which was patent. The mid section of LAD had 75% stenosis. First diagonal branch had ostial stenosis of 60%. The previously placed stent to the first obtuse marginal branch and distal circumflex artery was patent. Right coronary artery had nonobstructive disease of 50-70%. Fractional flow reserve measurement of the LAD mid vessel stenosis was significant at 0.70. It was recommended that he undergo PCI and stent to the LAD stenosis. This was discussed with the patient and and they was agreeable. There was successful deployment of a 2.5 x 28 mm Synergy drug-eluting stent into the mid LAD 75% stenosis. That stenosis was reduced to 0% after postdilation to 3.1 distally and 3.33 proximally. The proximal LAD 75% stenosis was reduced to 0% using a 3.0 x 28 mm Synergy drug-eluting stent. The stent was postdilated to 4 mm with Noncompliant balloon proximally and 3.92 distally. The patient was continued on dual antiplatelet therapy with aspirin and Plavix. Nitroglycerin drip was discontinued. His troponin peaked at 0.48. He was ruled out for an acute myocardial infarction. The culprit vessel was the LAD stenosis. The following day, the patient is doing well. He has no recurrent chest pain. There are no changes in his electrocardiogram. MB index 7.4. There was a slight drop of his hemoglobin from 11.4 to 9.6 with no evidence of bleeding. He had IV fluids and it was felt the drop of his hemoglobin was hemodilution. There was no active bleeding. His right radial site is healing well. There was a long discussion with the patient about his elevated triglyceride level of 441 and elevated blood glucose of 224. He will need better control of his insulin levels. His TSH was obtained which was within normal limits. It was felt the patient is stable for discharge today. ASSESSMENT VITAL SIGNS: Blood pressure 148/52, heart rate 61, temperature 98.7. CHEST: Clear to auscultation. HEART: S1, S2 with regular rate and rhythm. ABDOMEN: Soft, nontender with bowel sounds present. EXTREMITIES: Without leg edema. Right radial without hematoma or bruising. 4+ pulse. DIAGNOSTIC STUDIES LABORATORY STUDIES: Hemoglobin 9.6, hematocrit 27.6, platelet count 208, white count 9.2, sodium 137, potassium 4.7, BUN 18, creatinine 1.1, glucose 224, MB index 7.4. Cholesterol 94, triglycerides 441, HDL 25, LDL not done. TSH 0.78, free T4 1.04. CARDIOVASCULAR STUDIES: Electrocardiogram shows normal sinus rhythm, rate Unit #: [id number] #: [id number] Patient: NIKO PATTERSON of 63 beats per minute. DISCHARGE INSTRUCTIONS 1. The patient will be discharged home. 2. Follow up with Dr. Hatfield on August 24 at 2:15 p.m. 3. The patient can continue with cardiac rehab as previous starting next week. 4. Advised the patient to follow up with Dr. Kam for diabetes control. 5. Continue dual antiplatelet therapy with aspirin and Plavix for at least one year or indefinitely. Continue high intensity statin, ROSEMARY inhibitor and ARB. 6. BMP will be done on 07/28/2017 to evaluate for contrast-induced nephropathy. 7. The patient has been instructed if he has recurrent chest pain and uses nitroglycerin he will need to call our office. Dictated by... Anirudh Booth A.P.R.N. for Mya Sarkar TD: 07/16/2017 11:16 JOB #: [id number] DISCHARGE SUMMARY Page 1 of 1 X Anirudh Booth APRN X DISCHARGE SUMMARY
--- NOTE | ~2017-07-14 | EKG ---
PATIENT: NIKO ESQUIVEL UNIT #: [id number] Ventricular Rate: 61 BPM Atrial Rate: 61 BPM P-R Interval: 160 ms QRS Duration: 94 ms Q-T Interval: 454 ms QTC Calculation(Bezet): 457 ms P [place]: 33 degrees Calculated R [place]: 24 degrees Calculated T [place]: 44 degrees Diagnosis Line: Sinus rhythm with marked sinus arrhythmia Diagnosis Line: Possible Inferior infarct , age undetermined Diagnosis Line: Abnormal ECG Diagnosis Line: Diagnosis Line: Confirmed by NIR TALAVERA MD ([id number]) on 07/15/2017 Diagnosis Line: 10:18:11 PM INTERPRETING MD: SADAF PASCUAL
[~2017-07-14 08:56] MED LIST changes: +ASPIRIN81 M2 PO; +BUDESONIDE0.5 MG/2 M NEB; +CLOPIDOGREL75 MG PO; +FISH OIL300 MG PO; +GLIPIZIDE10 MG PO; +ISOSORBIDE MONO60 M1 PO; +JANUMET XR 1001 EACH PO; +LEVEMIR FL100 UNIT/1 SUBQ; +LIPITOR PO; +LOPRESSOR PO; +NITROGLYGERIN0.4 MG SL; +OLMESARTAN MEDO20 MG PO; +PATIENT'S PHARMACY; +PRESERVISION1 EA PO; +SYNTHROID PO; +VITAMIN B122500 MC1 PO; +ZETIA PO
[2017-07-14 09:29] LABS: BASOPHIL% 0.5 % (0-2.5); EOSINOPHIL# 0.1 X10e3 (0-0.7); EOSINOPHIL% 1.6 % (0.0-7.0); HEMOGLOBIN 11.4 gm/dL (13.0-16.0); LYMPHOCYTE# 2.1 X10e3 (1.0-3.5); LYMPHOCYTE% 26.1 % (17.0-45.0); MEAN CELL VOLUME 91.6 FL (83-96); MEAN CORPUSCULAR HEMOGLOBIN 30.8 PG (28-34); MEAN CORPUSCULAR HGB CONC 33.6 g/dL (30-36); MONOCYTE# 0.9 X10e3 (0-1.0); MONOCYTE% 10.5 % (3.0-12.0); NEUTROPHIL% 61.3 % (40-75); PLATELET COUNT 236 X10e3 (140-420); RED BLOOD COUNT 3.71 X10e (3.90-5.60); RED CELL DISTRIBUTION WIDTH 14.5 % (11.0-15.5); WHITE BLOOD COUNT 8.2 X10e3 (4.0-10.5)
[2017-07-14 09:31] LABS: DIFF IND NO
[2017-07-14 09:42] LABS: POC - CKMB 1.1 ng/mL (0.0-7.9); POC - TROPONIN <0.05 ng/mL (<=0.05)
[2017-07-14 09:51] LABS: INR 1.1; PARTIAL THROMBOPLASTIN TIME 26.6 SECONDS (23.5-31.3); PROTHROMBIN TIME (PATIENT) 11.5 SECONDS (10.0-11.7)
[2017-07-14 10:03] LABS: BILIRUBIN, DIRECT 0.1 mg/dL (0.0-0.2); BILIRUBIN,INDIRECT 0.2 mg/dL (0.0-0.9); BILIRUBIN,TOTAL 0.3 mg/dL (0.2-2.0); CREATININE SERUM 1.2 mg/dL (0.6-1.4); GLOM FILT RATE Estimated 59.2 mL/min (>60); POTASSIUM 4.5 mmol/L (3.5-5.1); PROTEIN TOTAL SERUM 7.5 g/dL (6.0-8.3)
[2017-07-14] MEDS ORDERED: ZETIA PO (10:45)
[2017-07-14] MEDS ORDERED: GLIPIZIDE ER10 MG PO (10:46)
[2017-07-14] MEDS ORDERED: ISOSORBIDE MONO60 M1 PO (10:46)
[2017-07-14] MEDS ORDERED: CLOPIDOGREL75 MG PO (10:46)
[2017-07-14] MEDS ORDERED: NAMENDA5 MG PO (10:47)
[2017-07-14] MEDS ORDERED: VITAMIN D35000 UNIT PO (10:47)
[2017-07-14] MEDS ORDERED: LOPRESSOR PO (10:47)
[2017-07-14] MEDS ORDERED: VITAMIN B122500 MCG PO (10:47)
[2017-07-14] MEDS ORDERED: ASPIRIN EC81 M1 PO (10:48)
[2017-07-14] MEDS ORDERED: LEVEMIR SUBQ (10:48)
[2017-07-14] MEDS ORDERED: LIPITOR PO (10:48)
[2017-07-14] MEDS ORDERED: PRESERVISION A1 EAC1 PO (10:48)
[2017-07-14] MEDS ORDERED: JANUMET XR 1001 EACH PO (10:49)
[2017-07-14] MEDS ORDERED: BENICAR PO (10:49)
[2017-07-14] MEDS ORDERED: CENTRUM PO (10:49)
[2017-07-14 11:05] LABS: CHOLESTEROL 119 mg/dL (0-200); HDL CHOLESTEROL 27 mg/dL (29-75)
[2017-07-14 11:06] LABS: TRIGLYCERIDES 401 mg/dL (10-160)
[2017-07-14 11:10] LABS: POC - CKMB <1.0 ng/mL (0.0-7.9); POC - TROPONIN <0.05 ng/mL (<=0.05)
[2017-07-14 19:43] LABS: CK TOTAL 37 IU/L (36-174)
[2017-07-14 23:38] LABS: CK TOTAL 58 IU/L (36-174)
[2017-07-15 00:26] LABS: HEMATOCRIT 27.6 % (38.0-50.0); HEMOGLOBIN 9.6 gm/dL (13.0-16.0); MEAN CELL VOLUME 90.6 FL (83-96); MEAN CORPUSCULAR HEMOGLOBIN 31.5 PG (28-34); MEAN CORPUSCULAR HGB CONC 34.8 g/dL (30-36); MEAN PLATELET VOLUME 6.8 FL (6.5-11.5); RED BLOOD COUNT 3.04 X10e (3.90-5.60); RED CELL DISTRIBUTION WIDTH 14.2 % (11.0-15.5); WHITE BLOOD COUNT 9.2 X10e3 (4.0-10.5)
[2017-07-15 01:02] LABS: ANGIO %MB 7.3 % (0.0-4.0); ANGIO MB 4.4 ng/ml
[2017-07-15 01:09] LABS: BLOOD UREA NITROGEN 18 mg/dL (9-23); BUN/CREATININE RATIO 16.36; CALCIUM SERUM 8.4 mg/dL (8.4-10.2); CARBON DIOXIDE 25 mmol/L (22-31); CHLORIDE 104 mmol/L (100-111); CHOLESTEROL 94 mg/dL (0-200); CREATININE SERUM 1.1 mg/dL (0.6-1.4); GLOM FILT RATE Estimated 65.8 mL/min (>60); GLUCOSE FASTING 224 mg/dL (70-110); HDL CHOLESTEROL 25 mg/dL (29-75); POTASSIUM 4.7 mmol/L (3.5-5.1); SODIUM 137 mmol/L (135-145)
[2017-07-15 01:15] LABS: TRIGLYCERIDES 441 mg/dL (10-160)
[2017-07-15 09:43] LABS: ANGIO %MB 7.4 % (0.0-4.0); ANGIO MB 6.6 ng/ml
[2017-07-15] MEDS ORDERED: NITROGLYGERIN0.4 MG SL (11:23)
[2017-07-15 11:58] LABS: THYROID STIMULATING HORMONE 0.78 uIU/ml (0.34-5.60)
[2017-07-15 12:05] LABS: FREE THYROXIN (T4) 1.04 ng/dL (0.58-1.64)
== END 2017-07-15 13:31 | disposition home or self-care (01) ==
LOC: CED 08:56 → CPACUOF 10:00 → CED 10:00 → CPACUOF 10:22 → CED 10:22 → C5B 16:44 → CPACUOF 16:44 → C5B 07-15 13:31
PROVIDERS: Emergency Medicine; Internal Medicine Cardiovascular Disease
DX: I24.9 Acute ischemic heart disease, unspecified (principal); I25.119 Atherosclerotic heart disease of native coronary artery with unspecified angina pectoris; I10 Essential (primary) hypertension; E78.5 Hyperlipidemia, unspecified; E11.9 Type 2 diabetes mellitus without complications; D50.9 Iron deficiency anemia, unspecified; E03.9 Hypothyroidism, unspecified; F03.90 Unspecified dementia, unspecified severity, without behavioral disturbance, psychotic disturbance, mood disturbance, and anxiety; Z86.73 Personal history of transient ischemic attack (TIA), and cerebral infarction without residual deficits; Z88.0 Allergy status to penicillin; Z79.02 Long term (current) use of antithrombotics/antiplatelets; Z79.82 Long term (current) use of aspirin; Z79.84 Long term (current) use of oral hypoglycemic drugs; Z79.899 Other long term (current) drug therapy; Z90.49 Acquired absence of other specified parts of digestive tract; Z95.5 Presence of coronary angioplasty implant and graft
CPT/HCPCS: 36415; 71010; 80048; 80061; 80076; 82550; 82553; 82947; 83880; 84439; 84443; 84484; 85025; 85027; 85347; 85610; 85730; 93005; 96374; 99152; 99153; 99285; C1725; C1769; C1874; C1887; C1894; G0378; J0153; J1644; J1815; J2250; J3010

== ENCOUNTER → 2017-07-28 | Outpatient (CLI) | payer OTHER ==
[~2017-07-28] MED LIST changes: +ASPIRIN EC81 M1 PO; +GLIPIZIDE ER10 MG PO; +LEVEMIR SUBQ; +PRESERVISION A1 EAC1 PO; +VITAMIN B122500 MCG PO; +VITAMIN D35000 UNIT PO
[2017-07-28 11:01] LABS: BUN/CREATININE RATIO 15.33; CALCIUM SERUM 9.1 mg/dL (8.4-10.2); CREATININE SERUM 1.5 mg/dL (0.6-1.4); GLOM FILT RATE Estimated 45.2 mL/min (>60); POTASSIUM 5.1 mmol/L (3.5-5.1)
== END | disposition home or self-care (01) ==
LOC: CLAB 09:52
PROVIDERS: Internal Medicine Cardiovascular Disease
DX: R94.4 Abnormal results of kidney function studies (principal)
CPT/HCPCS: 36415; 80048